=== PATIENT | male | born 1975 | race Caucasian/White ===

== ENCOUNTER 2017-09-06 06:58 | Emergency (ER) | payer MEDICAID ==
--- NOTE | 2017-09-06 07:04 | EDPHY ---
H & P Time Seen by Provider: 09/06/17 07:01 HPI/ROS: CHIEF COMPLAINT: "I am tired of walking" HISTORY OF PRESENT ILLNESS: The patient is a homeless alcoholic male presents the emergency department by paramedics with pain throughout his body secondary to walking constantly. The patient had been receiving his care in [place] but is now found his way to [facility]. The patient reports a history of seizure disorder and is on an unknown seizure medication which he has been intermittently compliant with. The patient denies any recent seizure. He denies history of fall or trauma. The patient denies fever, cough or congestion. The patient complains of generalized arthralgias. He has calluses and blisters on his feet. REVIEW OF SYSTEMS: A comprehensive 10 point review of systems is otherwise negative aside from elements mentioned in the history of present illness. Source: Patient Exam Limitations: No limitations - Medical/Surgical History PMH: Past medical history: Seizure disorder - Family History Significant Family History: No pertinent family hx - Social History Alcohol Use: Heavy - Physical Exam Exam: General Appearance: Alert, no distress Eyes: Pupils equal and round no pallor or injection ENT, Mouth: Mucous membranes moist Respiratory: There are no retractions, lungs are clear to auscultation Cardiovascular: Regular rate and rhythm Gastrointestinal: Abdomen is soft and nontender, no masses, bowel sounds normal Neurological: A&O, normal motor function, normal sensory exam, normal cranial nerves Skin: Blisters noted to the dorsum of the feet bilaterally, they are noninfected, no abscess, cellulitis or infectious changes noted Musculoskeletal: Neck is supple nontender Extremities: symmetrical, full range of motion Constitutional: Initial Vital Signs Temperature (C) 36.5 C 09/06/17 07:00 Heart Rate 96 09/06/17 07:00 Respiratory Rate 20 09/06/17 07:00 Blood Pressure 153/96 H 09/06/17 07:00 O2 Sat (%) 97 09/06/17 07:00 O2 Delivery Mode Room Air Allergies/Adverse Reactions: No Known Allergies Allergy (Unverified 09/06/17 07:00) Medical Decision Making ED Course/Re-evaluation: The patient presents to the ED with complaints of arthralgias in the setting of being homeless an alcoholic. The patient has no clinical evidence of a septic arthritis or acute emergency condition. The patient was given Motrin in the emergency department. The patient does have alcohol on his breath and does endorse drinking yesterday. He is concerned about the possibility of withdrawal. He would be comfortable [facility]. Departure - Departure Disposition: Home, Routine, Self-Care Clinical Impression: Arthralgia Condition: Good Instructions: Arthralgia (ED) Additional Instructions: 1. Please follow up with the [facility] for sobering today. 2. You have been given the contact number for [facility]. They would be happy to see you and establish outpatient primary care. Referrals: [facility],. [Clinic] - As per Instructions
[2017-09-06] MEDS ORDERED: IBUPROFEN 600 MG TAB PO ONE (07:11)
[2017-09-06 07:29] VITALS: BP 148/85
[2017-09-06] MEDS ORDERED: CHLORDIAZEPOXIDE 25MG PREPK#6 BTL TAKEHOME ONE ×2 (07:43→07:44)
== END 2017-09-06 08:10 | disposition home or self-care (01) ==
DX: M25.50 Pain in unspecified joint (principal)

== ENCOUNTER 2017-09-12 23:40 | Emergency (ER) | payer MEDICAID ==
[2017-09-12 23:51] VITALS: BP 147/87
[2017-09-12] MEDS ORDERED: IBUPROFEN 800 MG TAB PO ONE (23:59)
--- NOTE | 2017-09-13 00:03 | EDPHY ---
H & P Stated Complaint: bottom of feet hurt/chronic since 21 yrs old Time Seen by Provider: 09/13/17 00:00 HPI/ROS: HPI CHIEF COMPLAINT: Bilateral ankle pain chronic. HISTORY OF PRESENT ILLNESS: Patient is a 42-year-old male, homeless, he presents emergency room with bilateral ankle pain. He states this is a chronic issue and has had for years. States he has been excessively walking recently in his ankles have been hurting him worse. Denies any significant trauma. He states been on his feet and legs. Standing for prolonged periods of time. Decided come the emergency room due to bilateral ankle pain. No acute trauma. Denies fever. Denies chest pain or shortness of breath. Denies significant swelling. Past Medical History: Chronic arthritic pain. Past Surgical History: Denies any recent surgery Social History: Homeless, just recently came to [place] from [place]. Family History: Noncontributory ROS REVIEW OF SYSTEMS: A comprehensive 10 point review of systems is otherwise negative aside from elements mentioned in the history of present illness. Exam Constitutional nontoxic appearing triage nursing summary reviewed, vital signs reviewed, awake/alert. Eyes normal conjunctivae and sclera, EOMI, PERRLA. HENT normal inspection, atraumatic, moist mucus membranes, no epistaxis, neck supple/ no meningismus, no raccoon eyes. Respiratory clear to auscultation bilaterally, normal breath sounds, no respiratory distress, no wheezing. Cardiovascular rate normal, regular rhythm, no murmur, no edema, distal pulses normal. Gastrointestinal soft, non-tender, no rebound, no guarding, normal bowel sounds, no distension, no pulsatile mass. Genitourinary no CVA tenderness. Musculoskeletal bilateral lower extremities are neurovascular intact good distal pulse, good cap refill. No significant swelling to either ankle or foot. Patient able to ambulate and dorsiflex and plantar flex appropriately. no midline vertebral tenderness, full range of motion, no calf swelling, no tenderness of extremities, no meningismus, good pulses, neurovascularly intact. Skin pink, warm, & dry, no rash, skin atraumatic. Neurologic awake, alert and oriented x 3, AAOx3, moves all 4 extremities equally, motor intact, sensory intact, CN II-XII intact, normal cerebellar, normal vision, normal speech. Psychiatric normal mood/affect. Heme/Lymph/Immune no lymphadenopathy. Differential Diagnosis: Includes but is not limited to in a particular order arthralgia, arthritis, soft tissue swelling, overuse injury, stress injury Medical Decision Making: Plan for this patient ibuprofen 800 mg here in emergency room. Prescription for ibuprofen. Recommend elevating legs. Recommend icing ankles. Minimize stress on his feet and ankles. Return precautions discussed I do not think to be in AFib benefit from imaging is ankles there is no acute trauma. Source: Patient - Personal History Current Tetanus Diphtheria and Acellular Pertussis (TDAP): Unsure - Medical/Surgical History Hx Asthma: No Hx Chronic Respiratory Disease: No Hx Diabetes: No Hx Cardiac Disease: No Hx Renal Disease: No Hx Cirrhosis: No Hx Alcoholism: No Hx HIV/AIDS: No Hx Splenectomy or Spleen Trauma: No Other PMH: seizure, htn, L shoulder sx, r broken arm w/ metal sx, L side of neck fx. - Social History Smoking Status: Heavy smoker Constitutional: Initial Vital Signs Temperature (C) 36.7 C 09/12/17 23:47 Heart Rate 104 H 09/12/17 23:47 Respiratory Rate 16 09/12/17 23:47 Blood Pressure 147/87 H 09/12/17 23:47 O2 Sat (%) 94 09/12/17 23:47 O2 Delivery Mode Room Air Allergies/Adverse Reactions: No Known Allergies Allergy (Verified 09/12/17 23:46) Home Medications: Medication Instructions Recorded Ibuprofen [Motrin (*)] 800 mg PO Q6-8PRN #10 tab 09/12/17 Keppra 09/12/17 Departure - Departure Disposition: Home, Routine, Self-Care Condition: Good Instructions: Arthralgia (ED) Additional Instructions: 1. Stay off her feet as much as possible. 2. Keep your legs elevated. 3. Anti-inflammatory pain medicine for pain control. Referrals: NONE *PRIMARY CARE P,. [Primary Care Provider] - As per Instructions [facility],. [Clinic] - As per Instructions Prescriptions: Ibuprofen [Motrin (*)] 800 mg PO Q6-8PRN #10 tab
== END 2017-09-13 00:03 | disposition home or self-care (01) ==
DX: M25.571 Pain in right ankle and joints of right foot (principal); M25.572 Pain in left ankle and joints of left foot; I10 Essential (primary) hypertension; F17.200 Nicotine dependence, unspecified, uncomplicated